=== PATIENT | female | born 1985 | race Caucasian/White ===

== ENCOUNTER 2020-11-22 19:34 | Observation (INO) | payer OTHER ==
[~2020-11-22] VITALS: Ht 172.7 cm; Wt 74.0 kg
[2020-11-22 20:19] LABS: MICROSCOPIC AUTO
[2020-11-22] MEDS ORDERED: TERBUTALINE 1 MG/ML, 1ML SQ ONE (21:30)
[2020-11-22] MEDS ORDERED: TERBUTALINE 1 MG/ML, 1ML ONE (21:32)
[2020-11-22] MEDS ORDERED: PREN1TAB60 PO (22:40)
[2020-11-22] MEDS ORDERED: CALC200T3 PO (22:41)
== END 2020-11-23 00:06 | disposition home or self-care (01) ==
LOC: LDOP 19:34 → LDIP 21:26
PROVIDERS: ADMIT Obstetrics & Gynecology; ATTEND Obstetrics & Gynecology
DX: O60.03 Preterm labor without delivery, third trimester (principal); Z3A.30 30 weeks gestation of pregnancy; Z79.899 Other long term (current) drug therapy
CPT/HCPCS: 59025; 81001; 87086; 96372; G0378; J3105

== ENCOUNTER 2020-11-23 16:44 | Outpatient (CLI) | payer OTHER ==
[~2020-11-23] VITALS: Ht 172.7 cm; Wt 73.6 kg
[~2020-11-23 16:44] MED LIST: CALC200T3 PO; PREN1TAB60 PO
[2020-11-23 17:18] VITALS: BP 119/76
[2020-11-23 17:28] LABS: MICROSCOPIC NOT IND
[2020-11-23] MEDS ORDERED: TERBUTALINE 1 MG/ML, 1ML ONE (21:33)
[2020-11-23] MEDS ORDERED: TERBUTALINE 1 MG/ML, 1ML SQ ONE (22:00)
== END 2020-11-23 23:25 | disposition home or self-care (01) ==
LOC: LDOP 16:44
PROVIDERS: ATTEND Obstetrics & Gynecology
DX: O26.893 Other specified pregnancy related conditions, third trimester (principal); R10.9 Unspecified abdominal pain; O32.1XX0 Maternal care for breech presentation, not applicable or unspecified; Z3A.30 30 weeks gestation of pregnancy
CPT/HCPCS: 59025; 76819; 81003; 96372; J3105

== ENCOUNTER 2021-01-08 18:42 | Outpatient (CLI) | payer OTHER ==
[~2021-01-08] VITALS: Ht 172.7 cm; Wt 79.5 kg
[2021-01-08 18:58] VITALS: BP 136/86
[2021-01-08 20:28] LABS: MICROSCOPIC INDICATED
[2021-01-08] MEDS ORDERED: NITROFURANTOIN (MACROBID) 100 MG CAPSULE ONE (20:54)
[2021-01-08] MEDS ORDERED: NITROFURANTOIN (MACROBID) 100 MG CAPSULE PO ONE (21:00)
== END 2021-01-08 21:09 | disposition home or self-care (01) ==
LOC: LDOP 18:42
PROVIDERS: ATTEND Obstetrics & Gynecology
DX: O26.893 Other specified pregnancy related conditions, third trimester (principal); R10.9 Unspecified abdominal pain; Z3A.37 37 weeks gestation of pregnancy
CPT/HCPCS: 59025; 81001; 84112; 87086

== ENCOUNTER 2021-01-14 06:05 | Inpatient (IN) | payer OTHER ==
[~2021-01-14] VITALS: Ht 172.7 cm; Wt 80.5 kg
[2021-01-14] MEDS ORDERED: NEWBORN KIT ONE (06:18)
[2021-01-14 06:20] VITALS: BP 139/86
[2021-01-14] MEDS ORDERED: LACTATED RINGERS 1,000 ML IVBOLUS ONE ×2 (06:30→09:30)
[2021-01-14] MEDS ORDERED: PLEASE ENTER HEIGHT AND WEIGHT MC SCH (06:30)
[2021-01-14] MEDS ORDERED: METOCLOPRAMIDE 5 MG/ML, 2ML IV ONE (06:30)
[2021-01-14] MEDS ORDERED: SODIUM CITRATE/CITRIC ACID 30 ML UDC PO ONE ×2 (06:30→09:30)
[2021-01-14] MEDS ORDERED: CEFAZOLIN PMX 1GM/50ML 50 ML IVPB ONE (06:30)
[2021-01-14] MEDS ORDERED: METOCLOPRAMIDE 5 MG/ML, 2ML ONE (06:37)
[2021-01-14] MEDS ORDERED: SODIUM CITRATE/CITRIC ACID 15 ML UDC ONE (06:37)
[2021-01-14 06:51] LABS: BASOPHILS % (AUTO) 0 % (0-1); EOSINOPHILS % (AUTO) 2 % (1-7); LYMPHOCYTES % (AUTO) 17 % (22-44); MD NO; MEAN CORPUSCULAR HEMOGLOBIN 28.7 pg (27.0-34.8); MEAN CORPUSCULAR HGB CONC 33.7 g/dL (32.4-35.8); MEAN PLATELET VOLUME 7.6 fL (7.4-10.4); MONOCYTES % (AUTO) 7 % (2-9); NEUTROPHILS % (AUTO) 74 % (42-75); PLATELET COUNT 237 x10^3/uL (130-400); RED BLOOD COUNT 4.22 x10^6/uL (3.82-5.3); RED CELL DISTRIBUTION WIDTH 14.1 % (9.6-15.2)
[2021-01-14] MEDS ORDERED: CEFAZOLIN 1,000 MG ONE (07:52)
[2021-01-14] MEDS ORDERED: OXYTOCIN 10 UNITS/ML, 1ML ONE (07:52)
[2021-01-14] MEDS ORDERED: FENTANYL PF 100 MCG/2ML ONE (07:52)
[2021-01-14] MEDS ORDERED: HYDROmorphone 2 MG/ML, 1ML ONE (07:52)
[2021-01-14] MEDS ORDERED: KETOROLAC 30 MG/1 ML ONE (07:52)
[2021-01-14] MEDS ORDERED: ONDANSETRON 2MG/ML, 2ML ONE (07:52)
[2021-01-14] MEDS ORDERED: OXYTOCIN 30U/ 0.9% NaCL 500ML 500 ML ONE (09:24)
[2021-01-14] MEDS ORDERED: LACTATED RINGERS 1,000 ML IV SCH (09:30)
[2021-01-14] MEDS ORDERED: ONDANSETRON 2MG/ML, 2ML IVPush ONE (09:30)
[2021-01-14] MEDS ORDERED: CALCIUM CARBONATE 500 MG TAB.CHEW PO PRN (09:30)
[2021-01-14] MEDS ORDERED: SIMETHICONE 80 MG CHEW TAB PO PRN (11:00)
[2021-01-14] MEDS: LACTATED RINGERS 1,000 ML IV SCH ×4 (11:00→21:00)
[2021-01-14] MEDS ORDERED: ONDANSETRON 2MG/ML, 2ML IV PRN (11:00)
[2021-01-14] MEDS ORDERED: OXYcodone 5 MG/5 ML ORAL.SOL UDC ONE (11:06)
[2021-01-14] MEDS: OXYTOCIN 30U/ 0.9% NaCL 500ML 500 ML IV SCH ×2 (11:18→21:00)
[2021-01-14] MEDS ORDERED: OXYcodone 5 MG/5 ML ORAL.SOL UDC PO PRN (11:30)
[2021-01-14 11:53] VITALS: BP 105/65
[2021-01-14] MEDS ORDERED: morphine SULFATE 10 MG/ML, 1ML ONE (12:26)
[2021-01-14] MEDS: morphine SULFATE 10 MG/ML, 1ML IVPush PRN ×2 (12:30→20:04)
[2021-01-14] MEDS: OXYcodone/APAP 5/325MG TABLET PO PRN ×3 (14:35→23:23)
[2021-01-14] MEDS: KETOROLAC 30 MG/1 ML IV SCH ×2 (14:35→20:42)
[2021-01-14 15:49] VITALS: BP 108/70
[2021-01-14 16:30] LABS: BASOPHILS % (AUTO) 0 % (0-1); EOSINOPHILS % (AUTO) 1 % (1-7); LYMPHOCYTES % (AUTO) 12 % (22-44); MEAN CORPUSCULAR HEMOGLOBIN 28.4 pg (27.0-34.8); MEAN CORPUSCULAR HGB CONC 33.5 g/dL (32.4-35.8); MEAN PLATELET VOLUME 7.3 fL (7.4-10.4); MONOCYTES % (AUTO) 6 % (2-9); NEUTROPHILS % (AUTO) 81 % (42-75); PLATELET COUNT 177 x10^3/uL (130-400); RED BLOOD COUNT 3.51 x10^6/uL (3.82-5.3); RED CELL DISTRIBUTION WIDTH 13.9 % (9.6-15.2)
[2021-01-14 16:31] LABS: MD NO
[2021-01-14 19:20] VITALS: BP 109/70
[2021-01-14 23:59] VITALS: BP 105/67
[2021-01-15] MEDS: KETOROLAC 30 MG/1 ML IV SCH ×4 (02:48→20:30)
[2021-01-15] MEDS: LACTATED RINGERS 1,000 ML IV SCH ×5 (02:58→19:00)
[2021-01-15] MEDS: OXYcodone/APAP 5/325MG TABLET PO PRN ×5 (04:18→23:09)
[2021-01-15 04:35] VITALS: BP 100/62
[2021-01-15 06:56] VITALS: BP 95/62
[2021-01-15] MEDS: OXYTOCIN 30U/ 0.9% NaCL 500ML 500 ML IV SCH ×2 (07:00→17:00)
[2021-01-15] MEDS: PRENATAL VIT/IRON/FA 1 EACH TABLET PO SCH (08:29)
[2021-01-15] MEDS: DOCUSATE 100 MG CAPSULE PO PRN ×2 (08:29→20:10)
[2021-01-15 12:42] VITALS: BP 102/69
[2021-01-15 20:00] VITALS: BP 114/75
[2021-01-15] MEDS ORDERED: IBUPROFEN 600 MG TABLET ONE (20:06)
[2021-01-16] MEDS ORDERED: IBUPROFEN 600 MG TABLET ONE (02:08)
[2021-01-16] MEDS: IBUPROFEN 600 MG TABLET PO PRN ×4 (02:11→21:32)
[2021-01-16] MEDS: OXYTOCIN 30U/ 0.9% NaCL 500ML 500 ML IV SCH ×3 (03:00→23:00)
[2021-01-16] MEDS: LACTATED RINGERS 1,000 ML IV SCH ×6 (03:00→23:00)
[2021-01-16] MEDS: OXYcodone/APAP 5/325MG TABLET PO PRN ×4 (03:09→21:33)
[2021-01-16] MEDS: PRENATAL VIT/IRON/FA 1 EACH TABLET PO SCH (09:09)
[2021-01-16] MEDS: DOCUSATE 100 MG CAPSULE PO PRN ×2 (09:10→21:32)
[2021-01-16] MEDS ORDERED: IBUPROFEN 600 MG TABLET PO PRN (11:00)
[2021-01-16 21:45] VITALS: BP 111/76
[2021-01-17] MEDS: OXYcodone/APAP 5/325MG TABLET PO PRN ×3 (01:56→10:39)
[2021-01-17] MEDS: LACTATED RINGERS 1,000 ML IV SCH (03:00)
[2021-01-17] MEDS: IBUPROFEN 600 MG TABLET PO PRN ×2 (04:20→10:38)
[2021-01-17 06:24] VITALS: BP 109/72
[2021-01-17] MEDS ORDERED: DOCU-131 PO (08:50)
[2021-01-17] MEDS ORDERED: OXYC1TAB14 PO (08:50)
[2021-01-17] MEDS ORDERED: FERR325T5 PO (08:50)
[2021-01-17] MEDS ORDERED: IBUP-1222 PO (08:50)
[2021-01-17] MEDS: PRENATAL VIT/IRON/FA 1 EACH TABLET PO SCH (09:00)
[2021-01-17] MEDS: DOCUSATE 100 MG CAPSULE PO PRN (10:38)
== END 2021-01-17 10:55 | disposition home or self-care (01) | DRG 787 ==
LOC: LDIP 06:05 → 2NW 11:45
PROVIDERS: ADMIT Obstetrics & Gynecology; ATTEND Obstetrics & Gynecology
PROC: 10D00Z1 Extraction of Products of Conception, Low, Open Approach (ICD-10-PCS; principal; 2021-01-14)
DX: O32.1XX0 Maternal care for breech presentation, not applicable or unspecified (principal); O41.03X0 Oligohydramnios, third trimester, not applicable or unspecified; Z20.822 Contact with and (suspected) exposure to COVID-19; O36.63X0 Maternal care for excessive fetal growth, third trimester, not applicable or unspecified; Z3A.38 38 weeks gestation of pregnancy; Z37.0 Single live birth
CPT/HCPCS: 36415; 85025; 86592; 86850; 86900; 87635; G0378; J0690; J1170; J1885; J2405; J3010; J2270; J2590; J2765